=== PATIENT | female | born 1965 | race Caucasian/White ===

== ENCOUNTER 2020-03-06 14:04 | Emergency (ER) | payer BC ==
--- OUTSIDE RECORDS SUMMARY | 2020-03-06 14:06 | XMS REPORT | Continuity of Care Document ---
:1965 Author Organization [facility] [place] Care Team Providers Name Role Phone [facility] Unavailable Un available Problems Problem Status Onset Classification Date Comments Sourc e Date Reported Z12.31 - Active [facility] [address] CHANGES, 3 FIBROCYSTIC/ 611.[address] 2 Medications No Data Provided for This Section Allergies, Adverse Reactions, Alerts No Known Medication Allergies Immunizations No Data Provided for This Section Results No Data Provided for This Section Pathology Reports No Data Provided for This Section Diagnostic Reports Report Value Date Source Digital Mammo - DIGITAL MAMMO SCREENING DORIS MA 03/13/2016 [facility] [place] Screening Doris MA BILATERAL DIGITAL SCREENING MAMMOGRAM WITH CAD: 03/13/2016 CLINICAL: Routine. Current study was evaluated with a Glue Wheel Operator d Detection (CAD) system. Comparison is made to exams dated: 07/13/2012 mammogram - [facility] and 02/18/2007 mammogram. The tissue of both breasts i s heterogeneously dense, which could obscure detection of small masses. No significant masses, calci fications, or other findings are seen in either breast. There has been no significant interval change. IMPRESSION: NEGATIVE There is no mammographic bakari dence of malignancy. A 1 year screening mammogram is recommended. Onelia scott/tacos:03/16/2016 13:28:01 Design Inserter: Haley LOPEZ(R)(M), [facility] This exam was dictated and i nterpreted by [address] [place] [id number]. letter sent: Normal exam Mammogram BI-RADS: 1 Negative Breast US - BREAST US 03/30/2013 [facility] ULTRASOUND OF BOTH BREASTS AND BOTH AXILLA: 03/30 CLINICAL: Dense breast pain. Comparison is made to exam d ated: 07/13/2012 mammogram - [facility]. Color flow and real-time ult rasound of both breasts and both axilla were performed. Bean scale images of the real-time examination were reviewed. There is a small benign simp le cyst left breast at 11 o'clock that is an incidental finding. No abnormalities were seen s onographically in the right breast or either axilla. IMPRESSION: BENIGN There is no sonographic evidence of malignancy. There are no sonographic abn ormalities seen in either breast to correspond with the palpable nodularities and pain which likely represent hormonal stimulation and normal fibroglandular tissue. Return to annual mammogram screening schedule is recommended. SUMMARY: It was discussed with the pa tieraine that if clinical symptoms worsen, follow up with additional imaging is recommended. The patient will follow up with their primary care physician. Lele liriano/tacos:03/30/2013 15:04:00 Design Inserter: Galo Collins, [facility] This exam was dictated and i nterpreted by at [id number] for [facility] [id number] [place] [id number], SL 13. letter sent: Normal exam Ultrasound BI-RADS: 2 Benign Consultation Notes No Data Provided for This Section Discharge Summaries No Data Provided for This Section History and Physicals No Data Provided for This Section Vital Signs No Data Provided for This Section Encounters Location Location Encounter Encounter Reason Attending ADM [place] Stat us Source Details Type Number For Provider Date Date Visit Outpatient [id number] SCREENIN CHANDA 07/13 Active [facility] [place] [facility] Outpt Diag [id number] Chanda 03/13 03/14 [facility]2015 [facility] [id number] BREAST [facility]AN[facility], [place] FIBROCYS t TIC/ 611.71 Procedures No Data Provided for This Section Assessment and Plan No Data Provided for This Section Plan of Care No Data Provided for This Section Social History Social History Date Source No data available for this 03/14/2016 [facility] Family History No Data Provided for This Section Advance Directives No Data Provided for This Section Functional Status No Data Provided for This Section
[2020-03-06 15:56] LABS: Absolute Lymphocytes (CBC) 1.9 K/uL (0.7-4.9); Basophils % 0.5 % (0-1.3); Hematocrit 31.9 % (36.0-45.0); Lymphocytes % 24.7 % (15.3-44.8); MPV 9.2 fL (7.6-11.3); RBC Red Blood Cell Count 3.68 M/uL (3.86-4.86)
[2020-03-06 16:11] LABS: ALT/SGPT 18 U/L (12-78); AST/SGOT 16 U/L (15-37); Albumin 3.5 g/dL (3.4-5.0); Alkaline Phosphatase 88 U/L (45-117); BUN Blood Urea Nitrogen 12 mg/dL (7-18); Bicarbonate 27 mmol/L (21-32); Bilirubin Direct < 0.1 mg/dL (0-0.2); Bilirubin Total 0.3 mg/dL (0.2-1.0); Glucose Level 87 mg/dL (74-106); Lipase 97 U/L (73-393); Protein, Total 6.9 g/dL (6.4-8.2); Sodium Level 143 mmol/L (136-145)
--- NOTE | 2020-03-06 17:02 | RAD REPORT ---
EXAM DESCRIPTION: CT - Abdomen Pelvis W Contrast - 03/06/2020 4:30 pm CLINICAL HISTORY: Abdominal pain/vaginal bleeding COMPARISON: none. TECHNIQUE: Computed axial tomography of the abdomen pelvis was obtained. 100 cc Isovue-300 was admin istered intravenously. Oral contrast was not requested which limits evaluation of bowel. All CT scans are performed using dose optimization technique as appropriate and may include automated exposure control or mA/KV adjustment according to patient size. FINDINGS: The liver, spleen, pancreas, and adrenals appear unremarkable. Bilateral parapelvic renal cysts. There is no evidence of diverticulitis. The uterus is enlarged lobulated fibroid is. Largest measures 5.5 centimeters. The cervix is enlarged and bulky. Increased density is present within the cervical and endometrial ca nal IMPRESSION: Cervix is enlarged and bulky. Increased density is present within the cervical and endom etrial canal. . This may indicate neoplasm. Direct visualization recommended. Fibroid uterus
--- NOTE | 2020-03-06 18:09 | ER ---
Nurse's Notes [facility] Name: Latasha Pelletier Age: 54 yrs Sex: Female : 1965 Arrival Date: 03/06/2020 Time: 14:10 Bed 20 Private MD: Diagnosis: Abnormal uterine and vaginal bleeding, unspecified Presentation: 03/06 14:16 Chief complaint: Patient states: Vaginal bleeding for 3 years, worse with clots for 1 ll1 month. Weak and tired recently, legs feel numb at times. Coronavirus screen: Client denies travel out of the [place] in the last 14 days. At this time, the client does not indicate any symptoms associated with coronavirus-19. Ebola Screen: Patient denies travel to an Ebola-affected area in the 21 days before illness onset. Initial Sepsis Screen: Does the patient meet any 2 criteria? No. Patient's initial sepsis screen is negative. Risk Assessment: Do you want to hurt yourself or someone else? Patient reports no desire to harm self or others. Onset of symptoms was February 03, 2020. 14:16 Acuity: NED 3 ll1 14:16 Method Of Arrival: Ambulatory ll1 14:50 Initial Sepsis Screen: Does the patient have a suspected source of infection? No. ph Patient's initial sepsis screen is negative. 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 - Social history:: Smoking status: Patient denies any tobacco usage or history of. Patient/guardian denies using alcohol, street drugs. Screenin:18 Abuse screen: Denies threats or abuse. Denies injuries from another. Nutritional ph screening: No deficits noted. Tuberculosis screening: No symptoms or risk factors identified. Fall Risk None identified. Assessment: 14:48 General: Appears in no apparent distress. comfortable, well groomed, Behavior is calm, ph cooperative, appropriate for age. Pain: Complains of pain in low back area. Neuro: Level of Consciousness is awake, alert, obeys commands, Oriented to person, place, time, situation, Reports paresthesias in right leg and left leg. Cardiovascular: Capillary refill < 3 seconds in bilateral fingers Patient's skin is warm and dry. Cardiovascular: Reports fatigue, lightheadedness. Respiratory: Airway is patent Respiratory effort is even, unlabored, Respiratory pattern is regular, symmetrical. GI: No signs and/or symptoms were reported involving the gastrointestinal system. : Reports vaginal bleeding that is with clots, heavy flow. Derm: Skin is intact, is healthy with good turgor, Skin is pink, warm \T\ dry. Musculoskeletal: Circulation, motion, and sensation intact. Range of motion: intact in all extremities. 15:45 Reassessment: Patient appears in no apparent distress at this time. Patient and/or ph family updated on plan of care and expected duration. Pain level reassessed. Patient is alert, oriented x 3, equal unlabored respirations, skin warm/dry/pink. 16:51 Reassessment: Patient appears in no apparent distress at this time. Patient and/or ph family updated on plan of care and expected duration. Pain level reassessed. Patient is alert, oriented x 3, equal unlabored respirations, skin warm/dry/pink. 18:00 Reassessment: Patient appears in no apparent distress at this time. Patient and/or ph family updated on plan of care and expected duration. Pain level reassessed. Patient is alert, oriented x 3, equal unlabored respirations, skin warm/dry/pink. Vital Signs: 14:16 BP 147 / 91; Pulse 69; Resp 17; Temp 98.4; Pulse Ox 99% ; Weight 90.72 kg; Height 5 ft. ll1 4 in. (162.56 cm); Pain 3/10; 15:44 BP 138 / 78; Pulse 64; Resp 18; Pulse Ox 98% on R/A; ph 16:51 BP 132 / 76; Pulse 67; Resp 18; Pulse Ox 100% on R/A; ph 18:00 BP 132 / 74; Pulse 68; Resp 18; Temp 97.8; Pulse Ox 99% on R/A; ph 14:16 Body Mass Index 34.33 (90.72 kg, 162.56 cm) ll1 ED Course: 14:10 Patient arrived in ED. mr 14:17 Triage completed. ll1 14:17 Arm band placed on Patient placed in an exam room, on a stretcher. ll1 14:18 Shelly Chiu, HERI is Primary Nurse. ph 14:18 Patient has correct armband on for positive identification. Placed in gown. Bed in low ph position. Call light in reach. Side rails up X 1. Pulse ox on. NIBP on. Door closed. Noise minimized. Warm blanket given. 15:03 Wilton Kay PA is PHCP. lucila 15:03 Joshua Arias MD is Attending Physician. [facility] 15:44 Initial lab(s) drawn, by me, sent to lab. T\T\S collected, blood band applied to patient. ph Inserted saline lock: 20 gauge in right antecubital area, using aseptic technique. Blood collected. 16:30 CT Abd/Pelvis - IV Contrast Only In Process Unspecified. EDMS 18:09 Assist provider with pelvic exam: Set up pelvic tray. Performed by Wilton worthington Patient tolerated well. 18:25 IV discontinued, intact, bleeding controlled, No redness/swelling at site. hb Administered Medications: No medications were administered Outcome: 18:09 Discharge ordered by MD. [facility] 18:24 Discharged to home ambulatory. hb 18:24 Condition: stable 18:24 Discharge instructions given to patient, Instructed on discharge instructions, follow up and referral plans. Demonstrated understanding of instructions, follow-up care. 18:25 Patient left the ED. hb Signatures: Dispatcher [employer] EDND Wilton Kay PA PA jmm Rivera, Mary mr ChiuShelly, RN RN Huong Askew RN RN hb Lewis, Lynsay, RN RN ll1
--- NOTE | 2020-03-06 18:09 | EDPHYS ---
Physician Documentation [facility] Name: Latasha Pelletier Age: 54 yrs Sex: Female : 1965 Arrival Date: 03/06/2020 Time: 14:10 Bed 20 Private MD: ED Physician Joshua Arias HPI: 03/06 15:13 This 54 yrs old Female presents to ER via Ambulatory with complaints of jmm Vaginal Bleeding. 15:13 The patient presents with vaginal bleeding that is. Onset: The symptoms/episode jmm began/occurred today. Modifying factors: The symptoms are alleviated by nothing, the symptoms are aggravated by nothing. This is a 54 year old female with a history of migraines, menometrorrhagia, that presents to the ED with complaints of vaginal bleeding worsening today with a large blood clot. Patient is concerned her uterus may have prolapsed as well. . 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 - Social history:: Smoking status: Patient denies any tobacco usage or history of. Patient/guardian denies using alcohol, street drugs. ROS: 15:13 Constitutional: Negative for fever, chills, and weight loss, Cardiovascular: Negative jmm for chest pain, palpitations, and edema, Respiratory: Negative for shortness of breath, cough, wheezing, and pleuritic chest pain. 15:13 : Positive for vaginal bleeding. 15:13 All other systems are negative. Exam: 15:13 Constitutional: This is a well developed, well nourished patient who is awake, alert, jmm and in no acute distress. Head/Face: atraumatic. Eyes: EOMI, no conjunctival erythema appreciated ENT: Moist Mucus Membranes Neck: Trachea midline, Supple Chest/axilla: Normal chest wall appearance and motion. Cardiovascular: Regular rate and rhythm. No edema appreciated Respiratory: Normal respirations, no respiratory distress appreciated Abdomen/GI: Non distended, soft Back: Normal ROM Skin: General appearance color normal MS/ Extremity: Moves all extremities, no obvious deformities appreciated, no edema noted to the lower extremities Neuro: Awake and alert, normal gait Psych: Behavior is normal, Mood is normal, Patient is cooperative and pleasant Vital Signs: 14:16 BP 147 / 91; Pulse 69; Resp 17; Temp 98.4; Pulse Ox 99% ; Weight 90.72 kg; Height 5 ft. ll1 4 in. (162.56 cm); Pain 3/10; 15:44 BP 138 / 78; Pulse 64; Resp 18; Pulse Ox 98% on R/A; ph 16:51 BP 132 / 76; Pulse 67; Resp 18; Pulse Ox 100% on R/A; ph 18:00 BP 132 / 74; Pulse 68; Resp 18; Temp 97.8; Pulse Ox 99% on R/A; ph 14:16 Body Mass Index 34.33 (90.72 kg, 162.56 cm) ll1 MDM: 15:13 Patient medically screened. [facility] 18:07 Data reviewed: vital signs, nurses notes. Counseling: I had a detailed discussion with lucila the patient and/or guardian regarding: the historical points, exam findings, and any diagnostic results supporting the discharge/admit diagnosis, lab results, radiology results, the need for outpatient follow up, to return to the emergency department if symptoms worsen or persist or if there are any questions or concerns that arise at home. ED course: Pelvic exam reveals blood clots. Cervix visualized, does not appear abnormal. 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 Patient understood and agrees with the plan of care. . 03/06 15:16 Order name: Basic Metabolic Panel; Complete Time: 16:31 [facility] 03/06 15:16 Order name: CBC with Diff; Complete Time: 16:06 [facility] 03/06 15:16 Order name: Hepatic Function; Complete Time: 16:31 [facility] 03/06 15:16 Order name: Lipase; Complete Time: 16:31 [facility] 03/06 15:16 Order name: Type And Screen; Complete Time: 16:31 [facility] 03/06 15:16 Order name: CT Abd/Pelvis - IV Contrast Only; Complete Time: 17:04 [facility] 03/06 15:16 Order name: IV Saline Lock; Complete Time: 17:01 [facility] 03/06 15:16 Order name: Labs collected and sent; Complete Time: 17:01 [facility] 03/06 17:05 Order name: Pelvic Exam Setup; Complete Time: 17:32 jmm Administered Medications: No medications were administered Disposition: 03/07 17:05 Co-signature as Attending Physician, Joshua Arias MD I agree with the assessment and kdr plan of care. Disposition: 03/06/20 18:09 Discharged to Home. Impression: Abnormal uterine and vaginal bleeding, unspecified. - Condition is Stable. - Discharge Instructions: Abnormal Uterine Bleeding, Dysfunctional Uterine Bleeding. - Medication Reconciliation Form, Thank You Letter, Antibiotic Education, Prescription Opioid Use form. - Follow up: Private Physician; When: 2 - 3 days; Reason: Recheck today's complaints, Continuance of care, Re-evaluation by your physician. Signatures: Dispatcher [employer] EDMS Lianet Fleming Kevin, MD MD kdr Mickail, Joel, PA PA jmm Baxter, Heather, RN RN Russell Singh RN RN ll1 Corrections: (The following items were deleted from the chart) 03/06 18:25 18:09 03/06/2020 18:09 Discharged to Home. Impression: Abnormal uterine and vaginal hb bleeding, unspecified. Condition is Stable. Forms are Medication Reconciliation Form, Thank You Letter, Antibiotic Education, Prescription Opioid Use. Follow up: Private Physician; When: 2 - 3 days; Reason: Recheck today's complaints, Continuance of care, Re-evaluation by your physician. lucila
[2020-03-08 14:34] VITALS: TEMP 98.4
[2020-03-08 14:36] VITALS: BP 132/76; O2SAT 100
== END 2020-03-06 18:25 | disposition home or self-care (01) ==
LOC: ER 14:04
DX: N93.9 Abnormal uterine and vaginal bleeding, unspecified (principal)
CPT/HCPCS: 85025; 80048; 36415; 86900; 86850; 86901; 80076; 83690; 74177; 99284; Q9967